=== PATIENT | male | born 2000 | race Caucasian/White ===

== ENCOUNTER 2019-04-10 10:56 | Outpatient (CLI) | payer OTHER | END 2019-04-10 23:59 | disposition home or self-care (01) | LOC: CFH 10:56 | PROVIDERS: ATTEND Nurse Practitioner Primary Care | DX: J45.909 Unspecified asthma, uncomplicated (principal) | CPT/HCPCS: 71046 ==

== ENCOUNTER 2019-08-05 15:07 | Emergency (ER) | payer OTHER ==
[~2019-08-05] VITALS: Ht 175.3 cm; Wt 80.1 kg
[2019-08-05 15:21] VITALS: BP 122/61
== END 2019-08-05 16:28 | disposition home or self-care (01) ==
LOC: ED 16:12
DX: S39.012A Strain of muscle, fascia and tendon of lower back, initial encounter (principal); X58.XXXA Exposure to other specified factors, initial encounter; Y93.89 Activity, other specified; Y92.89 Other specified places as the place of occurrence of the external cause; Y99.8 Other external cause status
CPT/HCPCS: 72110; 99283